=== PATIENT | female | born 1990 | race Hispanic/Latino ===

== ENCOUNTER 2019-02-20 22:06 | Emergency (ER) | payer OTHER ==
[2019-02-20 22:12] VITALS: TEMP 97.1
--- NOTE | 2019-02-21 00:24 | C.PDOC ---
History Of Present Illness 28 year old female brought in by friends for public intoxication after drinking at a wedding. Time Seen by Provider: 02/20/19 22:42 Chief Complaint (Nursing): Substance Abuse History Per: Patient, EMS, Other (Friends) History/Exam Limitations: no limitations Onset/Duration Of Symptoms: Hrs Current Symptoms Are (Timing): Still Present Modifying Factor(s): Alcohol Involuntary Hold By: None Recent travel outside of the [place]: No Past Medical History Reviewed: Historical Data, Nursing Documentation, Vital Signs Vital Signs: Last Vital Signs Temp 97.1 F L 02/20/19 22:08 Pulse 62 02/20/19 22:08 Resp 20 02/20/19 22:08 BP 100/68 02/20/19 22:08 Pulse Ox 97 02/20/19 22:08 Family History: States: No Known Family Hx - Social History Hx Alcohol Use: Yes Hx Substance Use: No - Immunization History Hx Tetanus Toxoid Vaccination: No Hx Influenza Vaccination: No Hx Pneumococcal Vaccination: No Review Of Systems Constitutional: Negative for: Fever, Chills Cardiovascular: Negative for: Chest Pain, Palpitations Respiratory: Negative for: Cough, Shortness of Breath Gastrointestinal: Negative for: Nausea, Vomiting Neurological: Negative for: Weakness, Numbness Physical Exam - Physical Exam Appears: Non-toxic, Other (ETOH on breath, Stuperous, Easily arousable, No injuries) Skin: Normal Color, Warm Head: Atraumatic, Normacephalic Eye(s): bilateral: Normal Inspection Oral Mucosa: Moist Neck: Normal, Supple Chest: Symmetrical, No Tenderness Cardiovascular: Rhythm Regular Respiratory: Normal Breath Sounds, No Rales, No Rhonchi, No Wheezing Gastrointestinal/Abdominal: Soft, No Tenderness Neurological/Psych: Oriented x3 ED Course And Treatment O2 Sat by Pulse Oximetry: 97 Reevaluation Time: 01:24 Reassessment Condition: Improved Medical Decision Making Medical Decision Making: alcohol abuse Disposition Doctor Will See Patient In The: Office Counseled Patient/Family Regarding: Studies Performed, Diagnosis - Disposition Disposition: HOME/ ROUTINE Disposition Time: 01:24 Condition: GOOD Forms: [facility] (Malagasy) - Clinical Impression Clinical Impression: Alcohol abuse - Scribe Statement The provider has reviewed the documentation as recorded by the Scribnishant Jones All medical record entries made by the Scribe were at my direction and personally dictated by me. I have reviewed the chart and agree that the record accurately reflects my personal performance of the history, physical exam, medical decision making, and the department course for this patient. I have also personally directed, reviewed, and agree with the discharge instructions and disposition.
[2019-02-21 01:28] VITALS: BP 110/70; PULSE 80; RESP 14; O2SAT 99
== END 2019-02-21 01:28 | disposition home or self-care (01) ==
LOC: C.ER 22:06
DX: F10.10 Alcohol abuse, uncomplicated (principal)